=== PATIENT | female | born 1955 | race Caucasian/White ===

== ENCOUNTER 2020-09-23 08:57 | Outpatient (CLI) | payer MEDICARE, OTHER | END 2020-09-23 08:58 | disposition home or self-care (01) | LOC: CSHRAD 08:57 | PROVIDERS: ATTEND Nurse Practitioner Family | DX: M54.42 Lumbago with sciatica, left side (principal); M54.41 Lumbago with sciatica, right side | CPT/HCPCS: 72110 ==

== ENCOUNTER 2022-08-16 07:31 | Outpatient (CLI) | payer MEDICARE ==
[2022-08-16 08:02] VITALS: BP 125/57; TEMP 98.8
[2022-08-16] MEDS ORDERED: Lidocaine 1% PF 5 ML VIAL ONE (08:10)
[2022-08-16] MEDS ORDERED: Sodium Bicarbonate 2.5 MEQ/5 ML VIAL ONE (08:10)
== END 2022-08-16 10:38 | disposition home or self-care (01) ==
LOC: CSHRAD 07:31
PROVIDERS: ATTEND Anesthesiology Pain Medicine
DX: M48.02 Spinal stenosis, cervical region (principal); M47.812 Spondylosis without myelopathy or radiculopathy, cervical region
CPT/HCPCS: 62302; 72126

== ENCOUNTER 2024-04-09 09:52 | Outpatient (CLI) | payer MEDICARE | END 2024-04-09 09:53 | disposition home or self-care (01) | LOC: CSHCT 09:52 | PROVIDERS: ATTEND Psychiatry & Neurology Neurology | DX: M48.061 Spinal stenosis, lumbar region without neurogenic claudication (principal); Z98.890 Other specified postprocedural states | CPT/HCPCS: 72131 ==